=== PATIENT | male | born 1965 ===

== ENCOUNTER 2023-07-08 10:29 | Emergency (ER) | payer MEDICARE, OTHER ==
[2023-07-08] MEDS ORDERED: Ketorolac Tromethamine 30 MG (1 mL) VIAL ONE (11:56)
== END 2023-07-08 12:15 | disposition home or self-care (01) ==
LOC: CSHERS 10:29
DX: R07.89 Other chest pain (principal); F10.20 Alcohol dependence, uncomplicated
CPT/HCPCS: 71045; 96374; J1885

== ENCOUNTER 2024-01-05 16:44 | Emergency (ER) | payer MEDICARE ==
[2024-01-05 18:00] LABS: #Basophils 0.06 10x3/uL (0.0-0.2); #Eosinophils 0.43 10x3/uL (0.0-0.5); #Monocytes 0.47 10x3/uL (0.0-1.1); #Neutrophils 2.43 10x3/uL (1.5-8.4); %Basophils 1.3 % (0.0-2.0); %Lymphocytes 28.6 % (18.0-47.0); %Monocytes 9.8 % (0.0-10.0); %Neutrophils 50.7 % (40.0-75.0); Hematocrit 39.7 % (38.8-50.0); Hemoglobin 13.8 g/dL (13.5-17.5); Mean Corpuscular HGB CONC 34.8 g/dL (32.0-36.0); Mean Corpuscular Hemoglobin 33.4 pg (27.0-33.0); Mean Corpuscular Volume 96.1 fL (81.2-95.1); Mean Platelet Volume 9.9 fL (7.4-10.4); Platelet Count 130 10x3/uL (150-450); RBC Distribution Width 15.9 % (11.5-14.5); Red Blood Cell (RBC) Count 4.13 10x6/uL (4.32-5.72); White Blood Cell (WBC) Count 4.8 10x3/uL (3.5-10.5)
[2024-01-05 18:03] LABS: INR-International Normal Ratio 1.1; PTT 30.5 sec (22.0-33.0); Prothrombin Time 12.1 sec (9.5-12.1)
[2024-01-05 18:15] LABS: ALT (SGPT) 40 U/L (8-55); AST (SGOT) 51 U/L (5-34); Albumin 3.8 g/dL (3.5-5.0); Alkaline Phosphatase 110 U/L (40-110); Anion Gap 12 mmol/L (10-20); BUN (Urea Nitrogen) 18 mg/dL (8.4-25.7); Bilirubin, Total 1.3 mg/dL (0.2-1.2); Calc. Creatinine Clearance 0 mL/min (70-130); Calcium 9.1 mg/dL (7.8-10.44); Carbon Dioxide 24 mmol/L (22-29); Chloride 117 mmol/L (98-107); Estimated GFR 102; Globulin 2.5 g/dL (2.4-3.5); Glucose 103 mg/dL (70-105); Potassium 4.1 mmol/L (3.5-5.1); Protein, Total 6.3 g/dL (6.0-8.3); Sodium 149 mmol/L (136-145)
[2024-01-05 18:16] LABS: Acetaminophen Less than 10 mcg/mL (Less than 10); Alcohol 304.2 mg/dL (Less than 10); Lipase 164 U/L (8-78); Magnesium 1.9 mg/dL (1.6-2.6); Salicylate Less than 8.0 mg/dL (Less than 8.0)
[2024-01-05 18:20] LABS: Troponin I Less than 0.010 ng/mL (< 0.028)
[2024-01-05 18:24] LABS: Bilirubin Neg (Negative); Blood, Urine 10 (Negative); Clarity Clear (Clear); Glucose, Urine (Dipstick) Normal (Negative); Ketone, Urine Negative (Negative); Leukocyte Negative (Negative); Nitrite Negative (Negative); Protein, Urine (Dipstick) 30 mg/dl (Neg-Trace)
[2024-01-05 18:32] LABS: Amphetamine Not Detected (NotDetected); Barbiturates Screen Not Detected (NotDetected); Benzodiazepine Screen Not Detected (NotDetected); Cocaine Metabolite Screen Not Detected (NotDetected); Methadone Not Detected (NotDetected); Methamphetamine Not Detected (NotDetected); Opiate Screen Not Detected (NotDetected); Oxycodone Screen Not Detected (NotDetected); Phencyclidine (PCP) Not Detected (NotDetected); THC/Cannabinoid Screen Detected (NotDetected); Tricyclic Screen Not Detected (NotDetected)
[2024-01-05 18:35] LABS: Bacteria/HPF None Seen HPF (None Seen); CAUTI Indications for Culture Pelvic or flank pain; RBC/HPF 0-3 HPF (0-3); Squamous Epithelial 0-3 HPF (0-3); WBC/HPF 0-3 HPF (0-3)
[2024-01-05 18:36] LABS: Urine Culture Reflex No No
[2024-01-05] MEDS ORDERED: Thiamine 100 MG TAB ONE (22:40)
[2024-01-06] MEDS ORDERED: Ibuprofen 200 MG TAB ONE (05:37)
[2024-01-06 06:16] LABS: Anion Gap 10 mmol/L (10-20); BUN (Urea Nitrogen) 16 mg/dL (8.4-25.7); Calc. Creatinine Clearance 0 mL/min (70-130); Calcium 8.5 mg/dL (7.8-10.44); Carbon Dioxide 24 mmol/L (22-29); Chloride 112 mmol/L (98-107); Estimated GFR 106; Glucose 101 mg/dL (70-105); Potassium 3.8 mmol/L (3.5-5.1); Sodium 142 mmol/L (136-145)
== END 2024-01-06 08:50 | disposition home or self-care (01) ==
LOC: CSHERS 16:44
DX: G89.28 Other chronic postprocedural pain (principal); M25.551 Pain in right hip; F10.129 Alcohol abuse with intoxication, unspecified; E87.0 Hyperosmolality and hypernatremia
CPT/HCPCS: 36415; 70450; 71045; 80048; 80053; 80306; 80307; 81001; 82140; 83690; 83735; 83880; 84443; 84484; 85025; 85610; 85730; 93005

== ENCOUNTER 2024-01-07 09:39 | Emergency (ER) | payer MEDICARE ==
[2024-01-07] MEDS ORDERED: Acetaminophen 325 MG TAB ONE (10:37)
== END 2024-01-07 11:20 | disposition home or self-care (01) ==
LOC: CSHERS 09:39
DX: K08.89 Other specified disorders of teeth and supporting structures (principal); M25.551 Pain in right hip; W19.XXXA Unspecified fall, initial encounter; Y92.481 Parking lot as the place of occurrence of the external cause
CPT/HCPCS: 99283